=== PATIENT | male | born 1990 | race Native Hawaiian/Other Pacific Islander ===

== ENCOUNTER 2018-12-01 12:14 | Emergency (ER) | payer OTHER ==
[~2018-12-01] VITALS: Ht 180.3 cm; Wt 88.9 kg
[2018-12-01 14:26] VITALS: BP 134/81; TEMP 98
== END 2018-12-01 14:26 | disposition home or self-care (01) ==
LOC: ED 12:14
DX: S92.144A Nondisplaced dome fracture of right talus, initial encounter for closed fracture (principal); S51.812A Laceration without foreign body of left forearm, initial encounter; S41.112A Laceration without foreign body of left upper arm, initial encounter; V59.40XA Driver of pick-up truck or van injured in collision with unspecified motor vehicles in traffic accident, initial encounter
CPT/HCPCS: 80307; 80320; 81000; 90471; 90715; 96374; 96375; 99284; J1885; J2175; J2405

== ENCOUNTER 2019-12-07 10:34 | Outpatient (CLI) | payer OTHER | END 2019-12-07 22:00 | disposition home or self-care (01) | LOC: LAB 10:34 | DX: R68.89 Other general symptoms and signs (principal) | CPT/HCPCS: 87635; G2023; U0003 ==